=== PATIENT | male | born 1990 | race Caucasian/White ===

== ENCOUNTER 2019-01-15 15:31 | Inpatient (IN) | payer BC, MEDICAID ==
[~2019-01-15] VITALS: Ht 180.3 cm; Wt 78.0 kg
[2019-01-15] MEDS ORDERED: SODIUM CHLORIDE 0.9% 1,000 ML IV ONE ×2 (15:56→16:59)
[2019-01-15] MEDS ORDERED: ONDANSETRON HCL 4MG/2ML INJ IV ONE ×2 (16:00→17:00)
[2019-01-15] MEDS ORDERED: KETOROLAC 30MG/ML VIAL IV ONE (16:00)
[2019-01-15 16:23] LABS: BG BASE EXCESS 2.7 mmol/L (-2.0-2.0); BG CARBOXYHEMOGLOBIN 0.3 % (0.5-1.5); BG DEOXYHEMOGLOBIN 2.3 % (0.0-5.0); BG HCO3 ACT 23.5 mmol/L (22.0-26.0); BG METHEMOGLOBIN 0.1 % (0.0-1.5); BG OXYGEN SATURATION 97.7 % (92.0-98.5); BG OXYHEMOGLOBIN 97.3 % (94.0-97.0); BG PCO2 26.4 mmHg (35.0-45.0); BG PH 7.567 (7.350-7.450); BG PO2 96.1 mmHg (75.0-100.0); BG SAMPLE SITE RIGHT RADIAL; BG TOTAL HEMOGLOBIN 14.5 g/dL (12.0-18.0); BG VENT MODE ROOM AIR
[2019-01-15 16:27] LABS: CHLORIDE 100 mEq/L (98-107)
[2019-01-15 16:28] LABS: BASOPHILS % 0.1 % (0.0-2.0); HEMATOCRIT. 39.7 % (42.0-52.0); LYMPHOCYTES % 16.4 % (20.0-50.0); MEAN CORPUSCULAR HEMOGLOBIN 30.3 pg (28.0-32.0); MEAN CORPUSCULAR VOLUME 85.9 fL (80.0-94.0); MEAN PLATELET VOLUME 8.8 fl (7.4-10.4); MONOCYTES % 8.1 % (2.0-8.0); NEUTROPHILS % 75.4 % (40.0-76.0); PLATELET 225 x1000/uL (130-400); RED BLOOD CELL COUNT 4.62 mill/uL (4.7-6.1); RED CELL DISTRIBUTION WIDTH 12.9 % (11.6-14.6)
[2019-01-15 16:34] LABS: BETA HYDROXYBUTYRATE 2.7 mMol/L (0.0-0.3)
[2019-01-15] MEDS ORDERED: INSULIN REGULAR (HUMULIN R) 300UNITS/3ML IV ONE (17:00)
[2019-01-15] MEDS ORDERED: MORPHINE SULFATE 4 MG/ML CPJ (NOT FOR IM USE) IV ONE (17:00)
[2019-01-15] MEDS ORDERED: VISCOUS LIDOCAINE 2% 15 ML UDC PO STA (18:04)
[2019-01-15] MEDS ORDERED: MAGNESIUM/ALUMINUM HYDROXIDE/SIMETHICONE 30ML UDC PO STA (18:04)
[2019-01-15] MEDS ORDERED: INSULIN GLARGINE UD 100 UNITS/ML SYR SUBCUT NR (22:00)
[2019-01-15] MEDS ORDERED: DEXTROSE 50% WATER 50ML SYRINGE IV NR (22:11)
[2019-01-15] MEDS ORDERED: SODIUM CHLORIDE 0.9% 1,000 ML IV SCH (22:15)
[2019-01-15] MEDS ORDERED: DEXTROSE 50% WATER 50ML SYRINGE IV PRN (23:15)
[2019-01-15] MEDS ORDERED: DIPHENHYDRAMINE 50MG/ML VIAL IV PRN (23:15)
[2019-01-15] MEDS ORDERED: ACETAMINOPHEN 325MG TABLET PO PRN (23:15)
[2019-01-16] VITALS (7 sets, daily range): BP systolic 116–151; BP diastolic 72–83
[2019-01-16] MEDS: LORAZEPAM 2MG/ML CPJ IV PRN ×3 (00:32→16:07)
[2019-01-16] MEDS: SODIUM CHLORIDE 0.9% 1,000 ML IV SCH ×4 (00:32→23:23)
[2019-01-16] MEDS: METOCLOPRAMIDE HCL 10MG/2ML VIAL IV SCH ×5 (00:32→23:23)
[2019-01-16] MEDS: PANTOPRAZOLE SODIUM 40 MG/VIAL IV SCH ×3 (00:32→22:12)
[2019-01-16] MEDS: ONDANSETRON HCL 4MG/2ML INJ IV PRN ×3 (04:04→14:03)
[2019-01-16] MEDS: MORPHINE SULFATE 4 MG/ML CPJ (NOT FOR IM USE) IV PRN ×3 (04:06→18:07)
[2019-01-16] MEDS: BLOOD SUGAR DIAGNOSTIC STRIP TEST SCH ×4 (06:20→21:00)
[2019-01-16 06:44] LABS: CHLORIDE 110 mEq/L (98-107)
[2019-01-16 06:58] LABS: PHOSPHORUS 2.5 mg/dL (2.5-4.9)
[2019-01-16 07:08] LABS: BASOPHILS % 0.2 % (0.0-2.0); HEMATOCRIT. 36.3 % (42.0-52.0); HEMOGLOBIN. 12.6 g/dL (14.0-18.0); LYMPHOCYTES % 14.6 % (20.0-50.0); MEAN CORPUSCULAR HEMOGLOBIN 30.2 pg (28.0-32.0); MEAN CORPUSCULAR VOLUME 86.9 fL (80.0-94.0); MEAN PLATELET VOLUME 8.5 fl (7.4-10.4); MONOCYTES % 10.1 % (2.0-8.0); NEUTROPHILS % 75.1 % (40.0-76.0); PLATELET 202 x1000/uL (130-400); RED BLOOD CELL COUNT 4.17 mill/uL (4.7-6.1)
[2019-01-16] MEDS: INSULIN LISPRO 100 UNITS/ML SUBCUT SCH ×4 (07:50→22:11)
[2019-01-16] MEDS: INSULIN GLARGINE UD 100 UNITS/ML SYR SUBCUT SCH ×2 (10:00→22:00)
[2019-01-16] MEDS ORDERED: INSULIN GLARGINE UD 100 UNITS/ML SYR SUBCUT SCH (10:00)
[2019-01-16] MEDS ORDERED: IBUP-2437 MT (11:57)
[2019-01-16] MEDS ORDERED: LORA0.5T2 MT (11:57)
[2019-01-16] MEDS ORDERED: GABA-529 MT (11:57)
[2019-01-16] MEDS ORDERED: CITA10SO MT (11:57)
[2019-01-16] MEDS ORDERED: METO-293 MT (11:57)
[2019-01-17] VITALS: BP 122/74
[2019-01-17] MEDS: ONDANSETRON HCL 4MG/2ML INJ IV PRN ×5 (00:40→18:31)
[2019-01-17] MEDS: MORPHINE SULFATE 4 MG/ML CPJ (NOT FOR IM USE) IV PRN ×4 (00:40→18:37)
[2019-01-17 04:00] VITALS: BP 148/86
[2019-01-17] MEDS: METOCLOPRAMIDE HCL 10MG/2ML VIAL IV SCH ×4 (05:27→23:15)
[2019-01-17] MEDS: BLOOD SUGAR DIAGNOSTIC STRIP TEST SCH ×4 (06:32→21:38)
[2019-01-17] MEDS: INSULIN LISPRO 100 UNITS/ML SUBCUT SCH ×4 (07:50→21:43)
[2019-01-17 08:00] VITALS: BP 104/70
[2019-01-17] MEDS: PANTOPRAZOLE SODIUM 40 MG/VIAL IV SCH ×2 (08:30→21:43)
[2019-01-17] MEDS: SODIUM CHLORIDE 0.9% 1,000 ML IV SCH ×3 (08:32→23:46)
[2019-01-17] MEDS: INSULIN GLARGINE UD 100 UNITS/ML SYR SUBCUT SCH ×2 (08:57→21:43)
[2019-01-17 12:30] VITALS: BP 138/78
[2019-01-17 16:30] VITALS: BP 124/74
[2019-01-17] MEDS: CITALOPRAM HYDROBROMIDE 10MG TABLET PO SCH (17:23)
[2019-01-17] MEDS: SUCRALFATE 1 G/10 ML UDC PO SCH ×2 (17:24→21:43)
[2019-01-17 19:29] VITALS: BP 118/76
[2019-01-17] MEDS: LORAZEPAM 2MG/ML CPJ IV PRN (19:53)
[2019-01-17 21:23] LABS: CLARITY URINE CLEAR (CLEAR); COLOR URINE YELLOW (YELLOW); KETONES URINE 3+ (NEGATIVE); LEUKOCYTE ESTERASE URINE NEGATIVE (NEGATIVE); NITRITE URINE NEGATIVE (NEGATIVE); OCCULT BLOOD URINE NEGATIVE (NEGATIVE); PH URINE 5.5 (4.5-8.0); PROTEIN URINE NEGATIVE (NEGATIVE); SPECIFIC GRAVITY URINE 1.024 (1.005-1.030); UROBILINOGEN URINE 0.2 E.U./dL (0.2-1.0)
[2019-01-18] VITALS (8 sets, daily range): BP systolic 90–147; BP diastolic 54–81
[2019-01-18] MEDS: ONDANSETRON HCL 4MG/2ML INJ IV PRN ×3 (02:38→17:05)
[2019-01-18] MEDS: MORPHINE SULFATE 4 MG/ML CPJ (NOT FOR IM USE) IV PRN ×3 (02:39→17:12)
[2019-01-18] MEDS: METOCLOPRAMIDE HCL 10MG/2ML VIAL IV SCH ×3 (05:35→17:05)
[2019-01-18] MEDS: SUCRALFATE 1 G/10 ML UDC PO SCH ×4 (06:39→21:07)
[2019-01-18] MEDS: BLOOD SUGAR DIAGNOSTIC STRIP TEST SCH ×4 (06:39→21:06)
[2019-01-18 06:41] LABS: BASOPHILS % 0.4 % (0.0-2.0); EOSINOPHILS % 0.1 % (0.0-5.0); HEMATOCRIT. 36.8 % (42.0-52.0); HEMOGLOBIN. 12.9 g/dL (14.0-18.0); LYMPHOCYTES % 19.7 % (20.0-50.0); MEAN CORPUSCULAR HEMOGLOBIN 30.2 pg (28.0-32.0); MEAN CORPUSCULAR VOLUME 85.9 fL (80.0-94.0); MEAN PLATELET VOLUME 8.6 fl (7.4-10.4); MONOCYTES % 11.8 % (2.0-8.0); PLATELET 180 x1000/uL (130-400); RED BLOOD CELL COUNT 4.29 mill/uL (4.7-6.1); RED CELL DISTRIBUTION WIDTH 12.5 % (11.6-14.6)
[2019-01-18 07:51] LABS: CHLORIDE 98 mEq/L (98-107)
[2019-01-18 08:02] LABS: PHOSPHORUS 1.7 mg/dL (2.5-4.9)
[2019-01-18] MEDS: INSULIN LISPRO 100 UNITS/ML SUBCUT SCH ×4 (08:44→21:22)
[2019-01-18] MEDS: CITALOPRAM HYDROBROMIDE 10MG TABLET PO SCH (08:46)
[2019-01-18] MEDS: PANTOPRAZOLE SODIUM 40 MG/VIAL IV SCH ×2 (08:46→21:06)
[2019-01-18] MEDS: SODIUM CHLORIDE 0.9% 1,000 ML IV SCH (08:46)
[2019-01-18] MEDS ORDERED: MAGNESIUM 2 G PREMIX 50 ML IV NR (11:00)
[2019-01-18] MEDS ORDERED: SODIUM PHOS,M-BASIC-D-BASIC 20 MM in DEXT 5% WATER 243.3333 ML IV NR (11:30)
[2019-01-18] MEDS: LORAZEPAM 2MG/ML CPJ IV PRN ×2 (12:07→21:06)
[2019-01-18] MEDS: INSULIN GLARGINE UD 100 UNITS/ML SYR SUBCUT SCH (21:22)
[2019-01-19 00:06] VITALS: BP 106/56
[2019-01-19] MEDS: SODIUM CHLORIDE 0.9% 1,000 ML IV SCH ×3 (00:12→15:45)
[2019-01-19] MEDS: ONDANSETRON HCL 4MG/2ML INJ IV PRN ×2 (00:12→08:30)
[2019-01-19] MEDS: METOCLOPRAMIDE HCL 10MG/2ML VIAL IV SCH ×3 (00:12→12:43)
[2019-01-19] MEDS: MORPHINE SULFATE 4 MG/ML CPJ (NOT FOR IM USE) IV PRN ×3 (00:13→12:44)
[2019-01-19 04:00] VITALS: BP 123/76
[2019-01-19] MEDS: SUCRALFATE 1 G/10 ML UDC PO SCH ×2 (06:23→12:43)
[2019-01-19] MEDS: BLOOD SUGAR DIAGNOSTIC STRIP TEST SCH ×2 (06:23→11:54)
[2019-01-19 07:58] LABS: CHLORIDE 98 mEq/L (98-107)
[2019-01-19 08:00] VITALS: BP 109/66
[2019-01-19 08:06] LABS: PHOSPHORUS 1.9 mg/dL (2.5-4.9)
[2019-01-19] MEDS: INSULIN LISPRO 100 UNITS/ML SUBCUT SCH ×2 (08:27→12:45)
[2019-01-19] MEDS: PANTOPRAZOLE SODIUM 40 MG/VIAL IV SCH (08:31)
[2019-01-19] MEDS: CITALOPRAM HYDROBROMIDE 10MG TABLET PO SCH (08:32)
[2019-01-19] MEDS: LORAZEPAM 2MG/ML CPJ IV PRN ×2 (08:44→10:28)
[2019-01-19 12:00] VITALS: BP 111/65
[2019-01-19] MEDS ORDERED: POTASSIUM PHOS,M-BASIC-D-BASIC 20 MMOL in DEXT 5% WATER 250 ML IV SCH (12:00)
[2019-01-19 15:44] VITALS: BP 126/74
[2019-01-19 16:00] VITALS: BP 126/74
[2019-01-19] MEDS ORDERED: FAMOTIDINE 20MG/2ML VIAL IV SCH (21:00)
== END 2019-01-19 17:50 | disposition home or self-care (01) | DRG 74 ==
LOC: ER 15:46 → 6WST 17:57 → ENRESERV 21:38
PROVIDERS: ADMIT Internal Medicine; ATTEND Internal Medicine
DX: E11.43 Type 2 diabetes mellitus with diabetic autonomic (poly)neuropathy (principal); R45.851 Suicidal ideations; E11.65 Type 2 diabetes mellitus with hyperglycemia; K29.70 Gastritis, unspecified, without bleeding; K20.9 Esophagitis, unspecified; K31.84 Gastroparesis; F41.1 Generalized anxiety disorder; F12.90 Cannabis use, unspecified, uncomplicated; F32.9 Major depressive disorder, single episode, unspecified; E87.8 Other disorders of electrolyte and fluid balance, not elsewhere classified; Z82.49 Family history of ischemic heart disease and other diseases of the circulatory system; Z83.3 Family history of diabetes mellitus; Z79.899 Other long term (current) drug therapy; Z82.61 Family history of arthritis; Z79.4 Long term (current) use of insulin
CPT/HCPCS: 36415; 36600; 71045; 80048; 81003; 82010; 82375; 82805; 82962; 83036; 83735; 84100; 84484; 93005; 96361; 96374; 96375; 96376; 99285; C1893; C9113; J1815; J1885; J2060; J2270; J2405; J2765; J3475; J3490; J7030; J7060

== ENCOUNTER 2021-05-21 04:50 | Inpatient (IN) | payer BC ==
[~2021-05-21] VITALS: Ht 175.3 cm; Wt 79.4 kg
[~2021-05-21 04:50] MED LIST: CITA10SO MT; GABA-529 MT; LORA0.5T2 MT; METO-293 MT
[2021-05-21] MEDS ORDERED: ONDANSETRON HCL 4MG/2ML INJ IV STA (05:14)
[2021-05-21] MEDS ORDERED: SODIUM CHLORIDE 0.9% 1,000 ML IV ONE ×2 (05:15→09:15)
[2021-05-21 05:59] LABS: BASOPHILS % 0.5 % (0.0-2.0); EOSINOPHILS % 0.2 % (0.0-5.0); HEMATOCRIT. 42.3 % (42.0-52.0); HEMOGLOBIN. 14.3 g/dL (14.0-18.0); LYMPHOCYTES % 8.7 % (20.0-50.0); MEAN CORPUSCULAR HEMOGLOBIN 30.6 pg (28.0-32.0); MEAN CORPUSCULAR VOLUME 90.5 fL (80.0-94.0); MEAN PLATELET VOLUME 9.4 fl (7.4-10.4); NEUTROPHILS % 87.6 % (40.0-76.0); PLATELET 189 x1000/uL (130-400); RED BLOOD CELL COUNT 4.67 mill/uL (4.7-6.1); RED CELL DISTRIBUTION WIDTH 13.1 % (11.6-14.6)
[2021-05-21 06:02] LABS: CHLORIDE 97 mEq/L (98-107)
[2021-05-21 06:12] LABS: BETA HYDROXYBUTYRATE 1.5 mMol/L (0.0-0.3)
[2021-05-21] MEDS ORDERED: DICYCLOMINE 10 MG/5 ML ORAL SYR PO STA (07:26)
[2021-05-21] MEDS ORDERED: MAGNESIUM/ALUMINUM HYDROXIDE/SIMETHICONE 30ML UDC PO STA (07:26)
[2021-05-21] MEDS ORDERED: VISCOUS LIDOCAINE 2% 15 ML UDC PO STA (07:26)
[2021-05-21] MEDS ORDERED: ONDANSETRON HCL 4MG/2ML INJ IV ONE (07:30)
[2021-05-21] MEDS ORDERED: INSULIN REGULAR (HUMULIN R) 300UNITS/3ML VIAL IV ONE (08:30)
[2021-05-21 08:50] LABS: BG BASE EXCESS -2.8 mmol/L (-2.0-2.0); BG CARBOXYHEMOGLOBIN 1.3 % (0.5-1.5); BG DEOXYHEMOGLOBIN 1.4 % (0.0-5.0); BG FRACTION INSPIRED OXYGEN 21; BG HCO3 ACT 20.7 mmol/L (22.0-26.0); BG METHEMOGLOBIN 0.3 % (0.0-1.5); BG OXYGEN SATURATION 98.6 % (92.0-98.5); BG PCO2 32.8 mmHg (35.0-45.0); BG PH 7.419 (7.350-7.450); BG PO2 123.5 mmHg (75.0-100.0); BG SAMPLE SITE RIGHT BRACHIAL; BG TOTAL HEMOGLOBIN 14.4 g/dL (12.0-18.0); BG VENT MODE ROOM AIR
[2021-05-21] MEDS ORDERED: ACETAMINOPHEN 325MG TABLET PO PRN (11:15)
[2021-05-21] MEDS ORDERED: DEXTROSE 50% WATER 50ML SYRINGE IV PRN (11:15)
[2021-05-21] MEDS ORDERED: ONDANSETRON HCL 4MG/2ML INJ IV PRN (11:15)
[2021-05-21] MEDS: METOCLOPRAMIDE HCL 10MG/2ML VIAL IV SCH ×3 (11:51→23:01)
[2021-05-21] MEDS: SODIUM CHLORIDE 0.9% 1,000 ML IV SCH ×2 (11:51→22:58)
[2021-05-21] MEDS ORDERED: INSULIN GLARGINE UD 100 UNITS/ML SYR SUBCUT NR (12:00)
[2021-05-21] MEDS: BLOOD SUGAR DIAGNOSTIC STRIP TEST SCH ×3 (13:10→22:40)
[2021-05-21] MEDS: INSULIN LISPRO 100 UNITS/ML SUBCUT SCH ×3 (13:22→23:05)
[2021-05-21] MEDS ORDERED: MORPHINE SULFATE 2 MG/ML CPJ (NOT FOR IM USE) IV NR (16:45)
[2021-05-21] MEDS ORDERED: KETOROLAC 30MG/ML VIAL IV PRN (19:00)
[2021-05-21 22:00] VITALS: BP 124/83
[2021-05-21] MEDS ORDERED: INSULIN GLARGINE UD 100 UNITS/ML SYR SUBCUT SCH (22:00)
[2021-05-21] MEDS: INSULIN GLARGINE UD 100 UNITS/ML SYR SUBCUT SCH (23:30)
[2021-05-22] VITALS: BP 124/83
[2021-05-22 04:00] VITALS: BP 135/88
[2021-05-22 05:40] LABS: BASOPHILS % 0.1 % (0.0-2.0); HEMATOCRIT. 39.1 % (42.0-52.0); HEMOGLOBIN. 13.5 g/dL (14.0-18.0); LYMPHOCYTES % 11.5 % (20.0-50.0); MEAN PLATELET VOLUME 8.8 fl (7.4-10.4); MONOCYTES % 7.1 % (2.0-8.0); NEUTROPHILS % 81.3 % (40.0-76.0); PLATELET 188 x1000/uL (130-400); RED BLOOD CELL COUNT 4.35 mill/uL (4.7-6.1); RED CELL DISTRIBUTION WIDTH 13.7 % (11.6-14.6)
[2021-05-22] MEDS: METOCLOPRAMIDE HCL 10MG/2ML VIAL IV SCH (06:25)
[2021-05-22 06:31] LABS: CHLORIDE 106 mEq/L (98-107)
[2021-05-22] MEDS: BLOOD SUGAR DIAGNOSTIC STRIP TEST SCH (07:20)
[2021-05-22 08:00] VITALS: BP 131/83
[2021-05-22] MEDS: INSULIN LISPRO 100 UNITS/ML SUBCUT SCH (09:31)
[2021-05-22] MEDS: INSULIN GLARGINE UD 100 UNITS/ML SYR SUBCUT SCH (09:31)
== END 2021-05-22 10:50 | disposition left against medical advice (07) | DRG 74 ==
LOC: ER 04:50 → ENRESERV 20:16 → 6EST 21:44
PROVIDERS: ADMIT Internal Medicine; ATTEND Internal Medicine
DX: E11.43 Type 2 diabetes mellitus with diabetic autonomic (poly)neuropathy (principal); E87.1 Hypo-osmolality and hyponatremia; E87.5 Hyperkalemia; K31.84 Gastroparesis; E11.65 Type 2 diabetes mellitus with hyperglycemia; E87.8 Other disorders of electrolyte and fluid balance, not elsewhere classified; Z20.822 Contact with and (suspected) exposure to COVID-19; F12.90 Cannabis use, unspecified, uncomplicated; R11.2 Nausea with vomiting, unspecified; Z79.899 Other long term (current) drug therapy; Z53.29 Procedure and treatment not carried out because of patient's decision for other reasons
CPT/HCPCS: 36415; 36600; 80048; 80053; 82010; 82375; 82805; 82962; 84484; 85025; 87426; 99285; J1815; J1885; J2270; J2405; J2765; J7030

== ENCOUNTER 2022-04-28 20:24 | Emergency (ER) | payer BC, MEDICAID ==
[~2022-04-28] VITALS: Ht 180.3 cm; Wt 75.0 kg
[2022-04-28] MEDS ORDERED: PANTOPRAZOLE SODIUM 40 MG/VIAL IV NR (22:56)
[2022-04-28] MEDS ORDERED: MAGNESIUM/ALUMINUM HYDROXIDE/SIMETHICONE 30ML UDC PO NR (22:56)
[2022-04-28] MEDS ORDERED: ONDANSETRON HCL 4MG/2ML INJ IV NR (22:56)
[2022-04-28] MEDS ORDERED: VISCOUS LIDOCAINE 2% 15 ML UDC PO NR (22:56)
[2022-04-28] MEDS ORDERED: SODIUM CHLORIDE 0.9% 1,000 ML IV ONE (23:00)
[2022-04-28 23:41] LABS: HEMATOCRIT. 39.6 % (42.0-52.0); HEMOGLOBIN. 13.6 g/dL (14.0-18.0); MEAN CORPUSCULAR HEMOGLOBIN 31.1 pg (28.0-32.0); MEAN CORPUSCULAR VOLUME 90.3 fL (80.0-94.0); MEAN PLATELET VOLUME 8.8 fl (7.4-10.4); PLATELET 219 x1000/uL (130-400); RED BLOOD CELL COUNT 4.38 mill/uL (4.7-6.1); RED CELL DISTRIBUTION WIDTH 12.8 % (11.6-14.6)
[2022-04-28 23:44] LABS: PROTHROMBIN TIME 10.4 sec (9.6-11.0)
[2022-04-29 00:10] LABS: CHLORIDE 101 mEq/L (98-107)
[2022-04-29] MEDS ORDERED: INSULIN REGULAR (HUMULIN R) 300UNITS/3ML VIAL SUBCUT NR (00:15)
[2022-04-29] MEDS ORDERED: SODIUM CHLORIDE 0.9% 1,000 ML IV NR (00:15)
[2022-04-29] MEDS ORDERED: ONDANSETRON HCL 4MG/2ML INJ IV NR (00:15)
[2022-04-29 00:18] LABS: ETHANOL BLOOD < 10 mg/dL
[2022-04-29 00:58] LABS: CLARITY URINE CLEAR (CLEAR); COLOR URINE YELLOW (YELLOW); KETONES URINE 4+ (NEGATIVE); LEUKOCYTE ESTERASE URINE NEGATIVE (NEGATIVE); NITRITE URINE NEGATIVE (NEGATIVE); OCCULT BLOOD URINE NEGATIVE (NEGATIVE); PH URINE 7.5 (4.5-8.0); PROTEIN URINE TRACE (NEGATIVE); SPECIFIC GRAVITY URINE 1.038 (1.005-1.030); UROBILINOGEN URINE 0.2 E.U./dL (0.2-1.0)
[2022-04-29] MEDS ORDERED: MAG355OR21 MT (01:07)
[2022-04-29] MEDS ORDERED: PROT40 MT (01:07)
[2022-04-29] MEDS ORDERED: ONDA4TAB50 MT (01:07)
[2022-04-29 01:23] LABS: *AMPHETAMINES SCREEN URINE NEGATIVE (NEGATIVE); *BARBITURATES SCREEN URINE NEGATIVE (NEGATIVE); *BENZODIAZEPINES SCREEN URINE NEGATIVE (NEGATIVE); *COCAINE SCREEN URINE PRESUMTIVE POSITIVE (NEGATIVE); CANNABINOID URINE SCREEN PRESUMTIVE POSITIVE (NEGATIVE); METHADONE URINE SCREEN NEGATIVE (NEGATIVE); OPIATES URINE SCREEN NEGATIVE (NEGATIVE); PHENCYCLIDINE URINE SCREEN NEGATIVE (NEGATIVE)
[2022-04-29] MEDS ORDERED: METOCLOPRAMIDE HCL 10MG/2ML VIAL IV ONE (01:30)
[2022-04-29 02:00] VITALS: BP 138/72
[2022-04-29 05:24] LABS: PLATELET ESTIMATE NORMAL
== END 2022-04-29 03:38 | disposition home or self-care (01) ==
LOC: ER 20:35
DX: K29.70 Gastritis, unspecified, without bleeding (principal); E11.65 Type 2 diabetes mellitus with hyperglycemia; F14.10 Cocaine abuse, uncomplicated; F12.10 Cannabis abuse, uncomplicated; Z79.899 Other long term (current) drug therapy
CPT/HCPCS: 36415; 80053; 80305; 80320; 81003; 82962; 83690; 85025; 85610; 96361; 96372; 96374; 96375; 96376; 99284; C9113; J1815; J2405; J2765; Z7610; G0480

== ENCOUNTER 2022-12-02 16:57 | Emergency (ER) | payer MEDICAID ==
[~2022-12-02] VITALS: Ht 172.7 cm; Wt 73.0 kg
[~2022-12-02 16:57] MED LIST changes: +MAG355OR21 MT; +ONDA4TAB50 MT; +PROT40 MT
[2022-12-02 16:59] VITALS: O2SAT 99
[2022-12-02] MEDS ORDERED: SODIUM CHLORIDE 0.9% 1,000 ML IV ONE ×2 (18:30→19:30)
[2022-12-02 19:00] LABS: CHLORIDE 110 mEq/L (98-107); INDEX HEMOLYSI 1 (1-3); INDEX ICTERIC 1 (1-4); INDEX LIPEMIC 1 (1-3); POTASSIUM 3.9 mEq/L (3.5-5.1); SODIUM 142 mEq/L (136-145)
[2022-12-02 19:09] LABS: ALANINE AMINOTRANSFERASE 20 IU/L (13-61); ALBUMIN 2.9 g/dL (3.4-5.0); ASPARTATE AMINOTRANSFERASE 13 IU/L (15-37); BILIRUBIN TOTAL 0.3 mg/dL (0.1-1.0); CALCIUM 8.4 mg/dL (8.5-10.1); CARBON DIOXIDE 31 mEq/L (21-32); CREATININE 0.7 mg/dL (0.6-1.3); GLUCOSE 205 mg/dL (70-105); PHOSPHORUS 1.6 mg/dL (2.5-4.9); PROTEIN TOTAL 6.1 g/dL (6.0-8.3); UREA NITROGEN BLOOD 13 mg/dL (7-21)
[2022-12-02 19:11] LABS: TROPONIN I HIGH SENSITIVITY < 4 ng/L (<78)
[2022-12-02 19:15] LABS: LACTIC ACID 2.9 mmol/L (0.4-2.0)
[2022-12-02] MEDS ORDERED: POTASSIUM-SODIUM PHOSPHATE POWDER PACKET PO ONE (19:30)
[2022-12-02 20:43] LABS: TROPONIN I HIGH SENSITIVITY 4 ng/L (<78)
[2022-12-02 21:11] LABS: BASOPHILS % 1.1 % (0.0-2.0); EOSINOPHILS % 3.5 % (0.0-5.0); HEMATOCRIT. 35.9 % (42.0-52.0); HEMOGLOBIN. 12.2 g/dL (14.0-18.0); LYMPHOCYTES % 36.9 % (20.0-50.0); MEAN CORPUSCULAR HEMOGLOBIN 30.6 pg (28.0-32.0); MEAN PLATELET VOLUME 8.1 fl (7.4-10.4); MONOCYTES % 6.6 % (2.0-8.0); NEUTROPHILS % 51.9 % (40.0-76.0); PLATELET 195 x1000/uL (130-400); RED BLOOD CELL COUNT 3.99 mill/uL (4.7-6.1); WHITE BLOOD COUNT 4.9 x1000/uL (4.5-11.0)
[2022-12-02 23:30] VITALS: BP 112/75; PULSE 78; RESP 21; TEMP 98.4
== END 2022-12-02 23:52 | disposition home or self-care (01) ==
LOC: ER 16:57
DX: K29.70 Gastritis, unspecified, without bleeding (principal); R11.2 Nausea with vomiting, unspecified; E11.9 Type 2 diabetes mellitus without complications; F12.90 Cannabis use, unspecified, uncomplicated
CPT/HCPCS: 80053; 82962; 83605; 83690; 83735; 84100; 85025; 84484; 36415; 71045; 96360; 96361; 99285; J7030; Z7610

== ENCOUNTER 2023-01-08 12:58 | Emergency (ER) | payer MEDICAID ==
[~2023-01-08] VITALS: Ht 180.3 cm; Wt 83.0 kg
[2023-01-08] MEDS ORDERED: MORPHINE SULFATE 4 MG/ML CPJ (NOT FOR IM USE) IV STA (13:06)
[2023-01-08] MEDS ORDERED: ONDANSETRON HCL 4MG/2ML INJ IV STA (13:06)
[2023-01-08 13:15] VITALS: O2SAT 100
[2023-01-08] MEDS ORDERED: SODIUM CHLORIDE 0.9% 1,000 ML IV ONE ×2 (13:15→15:00)
[2023-01-08] MEDS ORDERED: insulin (13:15)
[2023-01-08 13:38] LABS: BASOPHILS % 0.9 % (0.0-2.0); EOSINOPHILS % 0.6 % (0.0-5.0); HEMATOCRIT. 39.5 % (42.0-52.0); HEMOGLOBIN. 13.6 g/dL (14.0-18.0); LYMPHOCYTES % 22.4 % (20.0-50.0); MEAN CORPUSCULAR HEMOGLOBIN 31.1 pg (28.0-32.0); MEAN CORPUSCULAR HGB CONC 34.6 g/dL (31.0-37.0); MEAN PLATELET VOLUME 9.4 fl (7.4-10.4); MONOCYTES % 5.1 % (2.0-8.0); PLATELET 176 x1000/uL (130-400); RED BLOOD CELL COUNT 4.39 mill/uL (4.7-6.1); RED CELL DISTRIBUTION WIDTH 12.6 % (11.6-14.6); WHITE BLOOD COUNT 11.1 x1000/uL (4.5-11.0)
[2023-01-08 13:46] LABS: INR 0.9; PROTHROMBIN TIME 10.1 sec (9.6-11.0)
[2023-01-08 14:03] VITALS: BP 161/91; PULSE 67; RESP 16
[2023-01-08 14:14] LABS: CHLORIDE 104 mEq/L (98-107); INDEX HEMOLYSI 1 (1-3); INDEX ICTERIC 1 (1-4); INDEX LIPEMIC 1 (1-3); POTASSIUM 3.4 mEq/L (3.5-5.1); SODIUM 136 mEq/L (136-145)
[2023-01-08 14:24] LABS: LACTIC ACID 2.1 mmol/L (0.4-2.0)
[2023-01-08 14:27] LABS: ALANINE AMINOTRANSFERASE 18 IU/L (13-61); ALBUMIN 3.8 g/dL (3.4-5.0); ASPARTATE AMINOTRANSFERASE 17 IU/L (15-37); BETA HYDROXYBUTYRATE 2.2 mMol/L (0.0-0.3); BILIRUBIN TOTAL 0.5 mg/dL (0.1-1.0); CARBON DIOXIDE 22 mEq/L (21-32); CREATININE 0.8 mg/dL (0.6-1.3); ETHANOL BLOOD < 10 mg/dL (<10); GLUCOSE 358 mg/dL (70-105); NT PRO B-TYPE NATRIURETIC PEP 27 pg/mL (5-125); PROTEIN TOTAL 7.6 g/dL (6.0-8.3); UREA NITROGEN BLOOD 19 mg/dL (7-21)
[2023-01-08] MEDS ORDERED: INSULIN LISPRO 100 UNITS/ML SUBCUT NR (15:00)
[2023-01-08] MEDS ORDERED: ONDANSETRON HCL 4MG/2ML INJ IV ONE (20:15)
== END 2023-01-08 20:31 | disposition home or self-care (01) ==
LOC: ER 12:58
DX: R10.9 Unspecified abdominal pain (principal); R11.2 Nausea with vomiting, unspecified; E11.65 Type 2 diabetes mellitus with hyperglycemia; F12.10 Cannabis abuse, uncomplicated; Z79.899 Other long term (current) drug therapy
CPT/HCPCS: 80053; 82010; 80320; 82962; 83880; 83605; 83690; 85025; 85610; 36415; 71045; 74176; 93005; 96361; 96372; 96374; 96375; 99285; J1815; J2405; J2270; J7030; G0480